=== PATIENT | female | born 1960 | race Caucasian/White ===

== ENCOUNTER 2021-04-16 11:06 | Emergency (ER) | payer MEDICARE, MEDICAID, SELFPAY ==
--- NOTE | 2021-04-16 11:11 | ED_ITS ---
HPI - Female Genitourinary General Chief complaint: Urogenital-Female Stated complaint: ?uti Time Seen by Provider: 04/16/21 11:09 Source: patient Mode of arrival: ambulatory Limitations: no limitations History of Present Illness MD elicited complaint: dysuria, UTI and other (noted hematuria for 2 days) Pertinent past history: other (hx of UTIs and overactive bladder in the past) Onset (ago): day(s) (10) Severity: mild Quality of pain: burning Consistency: intermittent Urinary symptoms: Dysuria, Urgency, Frequency, Hematuria and Foul Smelling Urine Exacerbating factors: urination Relieving factors: none Associated symptoms: chills Treatment prior to arrival: OTC urinary analgesics Sexual activity: No Related Data Home Medications Medication Instructions Recorded Confirmed duloxetine 60 mg capsule,delayed 60 mg PO DAILY 07/07/20 07/07/20 release lorazepam 0.5 mg tablet 0.5 mg PO TID PRN 07/07/20 07/07/20 lubiprostone 24 mcg capsule 24 mcg PO BID 07/07/20 07/07/20 tamoxifen 20 mg tablet 20 mg PO DAILY 07/07/20 07/07/20 zolpidem 10 mg tablet 10 mg PO BEDTIME PRN 07/07/20 07/07/20 Previous Rx's Medication Instructions Recorded cholecalciferol (vitamin D3) 25 25 mcg PO DAILY 30 Days #30 cap 07/04/20 mcg (1,000 unit) capsule docusate sodium 100 mg capsule 100 mg PO DAILY PRN #28 cap 08/18/20 (Stool Softener) amlodipine 2.5 mg tablet 2.5 mg PO QAM 90 Days #90 tab 09/16/20 aspirin 81 mg tablet,delayed 81 mg PO DAILY 90 Days #90 tab 11/30/20 release cyclobenzaprine 10 mg tablet 10 mg PO TID #84 tab 11/30/20 thiamine HCl (vitamin B1) 100 mg 100 mg PO DAILY #24 tab 12/28/20 tablet loratadine 10 mg tablet (Allergy 10 mg PO DAILY PRN #28 tab 01/27/21 Relief (loratadine)) omeprazole 20 mg capsule,delayed 20 mg PO DAILY #30 cap 01/27/21 release furosemide 20 mg tablet 20 mg PO DAILY #28 tab 02/06/21 metoprolol succinate 25 mg 12.5 mg PO BID #28 tab 02/06/21 tablet,extended release 24 hr hydrocodone 5 mg-acetaminophen 325 1 tab PO BID PRN 28 Days #56 tab 04/03/21 mg tablet ibuprofen 600 mg tablet 600 mg PO TID PRN #84 tab 04/03/21 fesoterodine 8 mg tablet,extended 8 mg PO DAILY #30 tab 04/04/21 release 24 hr (Toviaz) cefuroxime axetil 500 mg tablet 500 mg PO BID 10 Days #20 tab 04/16/21 Allergies Allergy/AdvReac Type Severity Reaction Status Date / Time No Known Allergies Allergy Verified 07/07/20 13:27 [No Known Allergies*] Review of Systems Review of Systems: Constitutional : No Weight loss, No Fever, pos Chills, No Fatigue, No Malaise ENT/Mouth : No sore throat, No Rhinorrhea Eyes: No Eye Pain, No Swelling, No Redness Cardiovascular : No Chest Pain, No SOB, No Dyspnea on Exertion, No Orthopnea, No Edema, No Palpitations Respiratory : No Cough, No Sputum, No Wheezing Gastrointestinal : No Nausea, No Vomiting, No Diarrhea, No Constipation, No abdominal Pain, No Hematochezia, No Melena Genitourinary : pos Dysuria, pos Urinary Frequency, po Hematuria, no flank pain Musculoskeletal : No joint pain, No Myalgias, No Joint Swelling Skin : No Skin Lesions, No rash Neuro : No Weakness, No Numbness, No Dizziness, No Headache PMFSH Past Medical History Attestation statement: The following information was validated with the patient. Medical History Allergic rhinitis Benign essential hypertension Constipation Coronary artery disease GERD without esophagitis History of ductal carcinoma in situ (DCIS) of breast Insomnia Morbid obesity with BMI of 50.0-59.9, adult Osteoarthritis Overactive bladder Surgical History History of bilateral mastectomy History of total abdominal hysterectomy Status post endovenous radiofrequency ablation of saphenous vein Family History Family History Father Brain tumor Cancer Mother Bladder cancer Cirrhosis H/O ETOH abuse Brother No problems noted. Brother No problems noted. Sister No problems noted. Sister No problems noted. Son No problems noted. Daughter No problems noted. Daughter No problems noted. Social History Social History (Updated 04/16/21 @ 11:11 by Colette Arrington DO) Alcohol intake: never Patient Tobacco Use Status: Never used Tobacco Advance Directives: No Advance Directives Information Provided: No Patient : No Physical Exam Vital Signs: Vital Signs: Last Vital Signs Temp 98.9 F 04/16/21 11:20 Pulse 109 H 04/16/21 11:20 Resp 16 04/16/21 11:20 BP 139/91 H 04/16/21 11:20 Pulse Ox 95 04/16/21 11:20 Body Mass Index 49.8 Appearance: Alert. Oriented X3. No acute distress. Eyes: Pupils equal, round and reactive to light. ENT: Pharynx normal. Neck: Normal inspection. Neck supple. CVS: Normal heart rate and rhythm. Pulses normal. Respiratory: No respiratory distress. Breath sounds normal. Abdomen: Soft and nontender. no CVA ttp Skin: Skin warm and dry. Normal skin color. Normal skin turgor. Extremities: No lower extremity edema. No calf ttp Neuro: Oriented X 3. No motor deficit. No sensory deficit. Course Course Course Narrative: states her HR normally runs low 100s at baseline, feels fine and wants to go home with oral abx MDM - Female Genitourinary MDM Narrative Medical decision making narrative: 61 yo female with of arthritis, overactive bladder, prior breast cancer, GERD, HTN comes in with 10 days of trying to treat dysuria, urinary frequency, cloudy urine, yesterday noted some blood at times and felt chills - she has no fevers, vomiting or flank pain - hx of UTIs in the past. At this time able to tolerate PO will obtain UA and start on oral antibiotics Lab Data Labs: Lab Results 04/16/21 Range/Units 11:28 Urine Color YELLOW Urine Appearance CLOUDY Urine pH 6.0 (5.0-8.0) Ur Specific [place] 1.025 (1.005-1.025) Urine Protein 2+ H (NEG-TRACE) MG/DL Urine Glucose (UA) NEG (NEG) MG/DL Urine Ketones NEG (NEG) MG/DL Urine Blood 3+ H (NEG) Urine Nitrite NEG (NEG) Ur Leukocyte Esterase 2+ H (NEG) Discharge Plan Discharge Clinical Impression: Urinary tract infection Qualifiers: Urinary tract infection type: acute cystitis Hematuria presence: with hematuria Qualified Code(s): N30.01 - Acute cystitis with hematuria Patient Disposition: Home, Self-Care Instructions: Urinary Tract Infection in Women (ED) Additional Instructions: return to ED for any worsening symptoms or concerns Prescriptions: New cefuroxime axetil 500 mg tablet 500 mg PO BID 10 Days Qty: 20 RF: 0 No Action cholecalciferol (vitamin D3) 25 mcg (1,000 unit) capsule 25 mcg PO DAILY 30 Days Qty: 30 RF: 12 docusate sodium [Stool Softener] 100 mg capsule 100 mg PO DAILY PRN (Reason: for constipation) Qty: 28 RF: 3 amlodipine 2.5 mg tablet 2.5 mg PO QAM 90 Days Qty: 90 RF: 1 cyclobenzaprine 10 mg tablet 10 mg PO TID Qty: 84 RF: 4 aspirin 81 mg tablet,delayed release (DR/EC) 81 mg PO DAILY 90 Days Qty: 90 RF: 3 thiamine HCl (vitamin B1) 100 mg tablet 100 mg PO DAILY Qty: 24 RF: 3 loratadine [Allergy Relief (loratadine)] 10 mg tablet 10 mg PO DAILY PRN (Reason: allergy symptoms) Qty: 28 RF: 3 omeprazole 20 mg capsule,delayed release(DR/EC) 20 mg PO DAILY Qty: 30 RF: 2 furosemide 20 mg tablet 20 mg PO DAILY Qty: 28 RF: 3 metoprolol succinate 25 mg tablet extended release 24 hr 12.5 mg PO BID Qty: 28 RF: 3 ibuprofen 600 mg tablet 600 mg PO TID PRN (Reason: for fever) Qty: 84 RF: 0 hydrocodone-acetaminophen 5-325 mg tablet 1 tab PO BID PRN (Reason: pain) 28 Days Qty: 56 RF: 0 Toviaz 8 mg tablet extended release 24 hr 8 mg PO DAILY Qty: 30 RF: 0 lorazepam 0.5 mg tablet 0.5 mg PO TID PRNRF: 0 zolpidem 10 mg tablet 10 mg PO BEDTIME PRNRF: 0 tamoxifen 20 mg tablet 20 mg PO DAILY RF: 0 duloxetine 60 mg capsule,delayed release(DR/EC) 60 mg PO DAILY RF: 0 Amitiza 24 mcg capsule 24 mcg PO BID RF: 0 Referrals: Johan Hernandez MD [Primary Care Provider] - 2 days (if not better)
[2021-04-16 11:20] VITALS: BP 139/91; PULSE 109; RESP 16; TEMP 37.2; O2SAT 95; BMI 49.8
[2021-04-16 11:34] LABS: Appearance Urine CLOUDY; Color Urine YELLOW; Glucose Urine UA NEG (NEG); Leukocyte Esterase Urine 2+ (NEG); Nitrite Urine NEG (NEG); Specific Gravity - Urine 1.025 (1.005-1.025); UACC Culture Trigger YES; Urine Blood 3+ (NEG); Urine Ketones NEG (NEG); Urine Protein 2+ MG/DL (NEG-TRACE)
[2021-04-16 11:52] VITALS: PULSE 104; RESP 18; TEMP 36.8; O2SAT 96
[2021-04-16 11:55] LABS: Bacteria Urine 1+ /LPF; RBC Urine TNTC /HPF (0); Squamous Epithelial Cell Urine TRACE /LPF; WBC Urine TNTC /HPF (0-4)
== END 2021-04-16 12:00 | disposition home or self-care (01) ==
PROVIDERS: Emergency Provider Emergency Medicine; PCP Internal Medicine
DX: N30.01 Acute cystitis with hematuria (principal); I10 Essential (primary) hypertension; Z87.440 Personal history of urinary (tract) infections; Z85.3 Personal history of malignant neoplasm of breast
CPT/HCPCS: 81001; 87086; 87088; 87186; 99283

== ENCOUNTER 2021-07-26 12:17 | Outpatient (REF) | payer MEDICARE, MEDICAID, SELFPAY ==
[2021-07-26 12:54] LABS: Appearance Urine CLOUDY; Color Urine YELLOW; Glucose Urine UA NEG (NEG); Leukocyte Esterase Urine 2+ (NEG); Nitrite Urine NEG (NEG); Specific Gravity - Urine 1.025 (1.005-1.025); UACC Culture Trigger YES; Urine Blood TRACE (NEG); Urine Ketones 5 MG/DL (NEG); Urine Protein TRACE MG/DL (NEG-TRACE)
[2021-07-26 13:11] LABS: WBC Urine TNTC /HPF (0-4)
[2021-07-26 13:12] LABS: Bacteria Urine 1+ /LPF; Squamous Epithelial Cell Urine 2+ /LPF
== END 2021-07-26 12:18 | disposition home or self-care (01) ==
LOC: HO.LAB 12:17
PROVIDERS: PCP Internal Medicine; Visit Provider Internal Medicine
DX: R30.0 Dysuria (principal)
CPT/HCPCS: 81001; 87086

== ENCOUNTER 2022-03-13 09:33 | Outpatient (REF) | payer MEDICARE, MEDICAID, SELFPAY ==
[2022-03-13 11:13] LABS: Appearance Urine Turbid; Color Urine Yellow; Glucose Urine UA Negative (Negative); Leukocyte Esterase Urine Large (3+) (Negative); Nitrite Urine Negative (Negative); UMIC TRIGGER UACC YES; Urine Blood Large (3+) (Negative); Urine Ketones Negative (Negative); Urine Protein 100 (2+) mg/dL (Neg-Trace)
[2022-03-13 11:19] LABS: Bacteria Urine 2+ (None Seen); Hyaline Casts Urine 0-2 /LPF (0-2); RBC Urine >20 /HPF (0-2); UACC Culture Trigger YES; WBC Urine >50 /HPF (0-5)
[2022-03-13 11:34] LABS: Hematocrit 42.5 % (37.0-47.0); Hemoglobin 13.3 g/dl (12.0-16.0); Mean Corpuscular HGB Conc 31.3 g/dl (31.0-35.0); Mean Corpuscular Hemoglobin 24.2 pg (27.0-33.0); Mean Corpuscular Volume 77.4 fL (80.0-98.0); Mean Platelet Volume 11.4 fL (9.4-12.3); Platelet Count 364 X10*3/uL (160-400); Red Blood Count 5.49 X10*6/uL (4.20-5.50); White Blood Count 10.2 X10*3/uL (4.8-10.8)
[2022-03-13 12:01] LABS: Alanine Aminotransferase 20 U/L (0-31); Albumin Level 4.1 g/dL (3.5-5.0); Alkaline Phosphatase 100 U/L (39-117); Anion Gap 17 (12-20); Aspartate Amino Transferase 17 U/L (5-31); Bilirubin Total 0.3 mg/dL (0.0-1.0); Blood Urea Nitrogen 18 mg/dL (9-16); Calcium 9.6 mg/dL (8.4-10.2); Carbon Dioxide 24 mmol/L (22-29); Chloride 103 mmol/L (96-108); Cholesterol 181 mg/dL; Estimated Glomerular Filt Rate > 60; Glucose Fasting 97 mg/dL (60-99); HDL Cholesterol 53 mg/dL; LDL Cholesterol Calculated 101 mg/dl; Sodium 140 mmol/L (135-145); Total Protein 7.8 g/dL (6.5-8.0); Triglycerides 136 mg/dL
[2022-03-13 12:11] LABS: Vitamin D 25-OH Total 42.9 ng/mL (>30)
[2022-03-13 12:59] LABS: Folate 6.9 ng/mL (> or = 4.0); Vitamin B12 326 pg/mL (200-900)
== END 2022-03-13 09:34 | disposition home or self-care (01) ==
LOC: HO.LAB 09:33
PROVIDERS: Nurse Practitioner Family; PCP Internal Medicine; Visit Provider Internal Medicine
DX: Z13.220 Encounter for screening for lipoid disorders (principal); Z13.29 Encounter for screening for other suspected endocrine disorder; I10 Essential (primary) hypertension
CPT/HCPCS: 36415; 80053; 80061; 81001; 82306; 82607; 82746; 84443; 85027; 87086